=== PATIENT | male | born 1975 | race Caucasian/White ===

== ENCOUNTER 2018-12-01 13:09 | Emergency (ER) | payer BC ==
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
== END 2018-12-01 16:00 | disposition home or self-care (01) ==
LOC: DL.ED 13:09
DX: S89.92XA Unspecified injury of left lower leg, initial encounter (principal); M22.42 Chondromalacia patellae, left knee; W17.89XA Other fall from one level to another, initial encounter
CPT/HCPCS: 73562-LT; 99283-25

== ENCOUNTER 2019-08-03 21:28 | Emergency (ER) | payer BC ==
--- NOTE | 2019-08-03 22:13 | EDM.PDOC ---
ED HPI GENERAL MEDICAL PROBLEM - General Chief Complaint: Lower Extremity Injury/Pain Stated Complaint: KNEE PAIN/TINGLY TOES Time Seen by Provider: 08/03/19 22:00 Source of Information: Reports: Patient History Limitations: Reports: No Limitations - History of Present Illness INITIAL COMMENTS - FREE TEXT/NARRATIVE: This 44 yo male patient reports to the ED with left knee pain. The patient reports he jumped off a fence this morning at about 1000 and has had increased pain in his knee since that time. The patient reports he has had 3 different episodes of pain in his left knee previously, but today his pain is much worse than previous episodes. The patient reports he has not had an MRI in the past for his left knee pain. The patient reports medial knee pain today. The patient reports he has a knee immobilizer and a couple of knee braces at his house from previous episodes. The patient reports he took an oxycodone earlier today. The patient reports he is not supposed to take antiinflammatory medications due to his UC. Onset: Today Onset Date: 08/03/19 Onset Time: 10:00 Duration: Constant Location: Reports: Lower Extremity, Left Quality: Reports: Ache, Dull Severity: Moderate Improves with: Reports: Rest Worsens with: Reports: Movement Context: Reports: Activity Left Knee Pain Score (Numeric/FACES): 7 - Related Data Allergies Allergy/AdvReac Type Severity Reaction Status Date / Time No Known Allergies Allergy Verified 08/03/19 21:35 Home Meds: Home Meds predniSONE [Prednisone] 40 mg PO DAILY 08/03/19 [History] Past Medical History Musculoskeletal History: Reports: Other (See Below) Other Musculoskeletal History: PT told pt 3 years ago his left ACL was torn, told him not to get it fixed Social & Family History - Family History Family Medical History: Noncontributory - Tobacco Use Smoking Status *Q: Never Smoker Second Hand Smoke Exposure: No - Caffeine Use Caffeine Use: Reports: None - Recreational Drug Use Recreational Drug Use: No - Living Situation & Occupation Occupation: Employed Review of Systems - Review of Systems Review Of Systems: Comprehensive ROS is negative, except as noted in HPI. ED EXAM, GENERAL - Physical Exam Exam: See Below Exam Limited By: No Limitations General Appearance: Alert, WD/WN, Moderate Distress Eye Exam: Bilateral Eye: EOMI, Normal Inspection, PERRL Ears: Normal External Exam, Normal Canal, Hearing Grossly Normal, Normal TMs Nose: Normal Inspection, Normal Mucosa, No Blood Throat/Mouth: Normal Inspection, Normal Lips, Normal Teeth, Normal Gums, Normal Oropharynx, Normal Voice, No Airway Compromise Head: Atraumatic, Normocephalic Neck: Normal Inspection, Supple, Non-Tender, Full Range of Motion Respiratory/Chest: No Respiratory Distress, Lungs Clear, Normal Breath Sounds, No Accessory Muscle Use, Chest Non-Tender Cardiovascular: Normal Peripheral Pulses, Regular Rate, Rhythm, No Edema, No Gallop, No JVD, No Murmur, No Rub GI/Abdominal: Normal Bowel Sounds, Soft, Non-Tender, No Organomegaly, No Distention, No Abnormal Bruit, No Mass (Male) Exam: Deferred Rectal (Males) Exam: Deferred Back Exam: Normal Inspection, Full Range of Motion, NT Extremities: Limited Range of Motion, Other (Left medial knee pain with palpation and with movement. ) Neurological: Alert, Oriented, CN II-XII Intact, Normal Cognition, Normal Gait, Normal Reflexes, No Motor/Sensory Deficits Psychiatric: Normal Affect, Normal Mood Skin Exam: Warm, Dry, Intact, Normal Color, No Rash Lymphatic: No Adenopathy Course - Vital Signs Last Recorded V/S: Last Vital Signs Temp 36.4 C 08/03/19 21:31 Pulse 69 08/03/19 21:31 Resp 18 08/03/19 21:31 BP 125/57 L 08/03/19 21:31 Pulse Ox 98 08/03/19 21:31 - Orders/Labs/Meds Orders: Active Orders 24 hr Category Date Time Status Knee 3V Lt [CR] Urgent Exams 08/03/19 21:41 Ordered Departure - Departure Time of Disposition: 22:49 Disposition: Home, Self-Care 01 Condition: Fair Clinical Impression: Strain of left knee Qualifiers: Encounter type: initial encounter Qualified Code(s): S86.912A - Strain of unspecified muscle(s) and tendon(s) at lower leg level, left leg, initial encounter - Discharge Information *PRESCRIPTION DRUG MONITORING PROGRAM REVIEWED*: Not Applicable *COPY OF PRESCRIPTION DRUG MONITORING REPORT IN PATIENT KAVON: Not Applicable Instructions: Knee Sprain, Adult, [id number] Forms: ED Department Discharge Care Plan Goals: The patient was advised of the examination and x-ray results during the visit. The patient was given a set of crutches and advised to rest, ice and elevate the left knee. The patient should follow-up with his primary care facility in about 10 days for continued evaluation and further management. If the patient has any additional symptoms or concerns, the patient should either return to the emergency department or visit his primary care facility. Sepsis Event Note - Evaluation Sepsis Screening Result: No Definite Risk - Focused Exam Vital Signs: Vital Signs Temp Pulse Resp BP Pulse Ox 08/03/19 21:31 36.4 C 69 18 125/57 L 98 Date Exam was Performed: 08/03/19 Time Exam was Performed: 22:49 - My Orders Last 24 Hours: My Active Orders 08/03/19 21:41 Knee 3V Lt [CR] Urgent - Assessment/Plan Last 24 Hours: My Active Orders 08/03/19 21:41 Knee 3V Lt [CR] Urgent
== END 2019-08-03 22:55 | disposition home or self-care (01) ==
LOC: DL.ED 21:28
DX: S86.912A Strain of unspecified muscle(s) and tendon(s) at lower leg level, left leg, initial encounter (principal); X58.XXXA Exposure to other specified factors, initial encounter; Y93.39 Activity, other involving climbing, rappelling and jumping off
CPT/HCPCS: 73562-LT; 99283-25